=== PATIENT | male | born 1990 | race African-American/Black ===

== ENCOUNTER 2016-12-09 13:02 | Emergency (ER) | payer OTHER ==
[2016-12-09 14:51] LABS: ANION GAP 7 MEQ/L (8-16); BLOOD UREA NITROGEN 15 MG/DL (7-18); CALCIUM LEVEL 9.3 MG/DL (8.5-10.1); CARBON DIOXIDE LEVEL 31 MEQ/L (21-32); CHLORIDE LEVEL 104 MEQ/L (98-107); CREATININE FOR GFR 1.26 MG/DL (0.70-1.30); GLOMERULAR FILTRATION RATE > 60.0 (>60); GLUCOSE, FASTING 84 MG/DL (70-105); POTASSIUM SERUM 4.1 MEQ/L (3.5-5.1); SODIUM LEVEL 142 MEQ/L (136-145)
--- NOTE | 2016-12-09 15:26 | REP ---
Lumbosacral spine: Five views of the lumbosacral spine are performed. There is no compression fracture. There is normal alignment. Disc spaces are well preserved. Posterior elements appear intact. IMPRESSION: Negative lumbosacral spine series. Signed by Aaron Whiting MD 12/09/2016 04:46 P
--- NOTE | 2016-12-09 15:40 | EDDOCDS ---
Physician Documentation [facility] Name: Karel Duran Age: 26 yrs Sex: Male : 1990 Arrival Date: 12/09/2016 Time: 13:02 Bed 5 Private MD: [facility] [place] Disposition: 12/09/16 14:59 Discharged to Home/Self Care. Impression: Sciatica, right side. - Condition is Stable. - Discharge Instructions: Sciatica, [id number]. - Prescriptions for Cyclobenzaprine 5 mg Oral Tablet - take 1 tablet by ORAL route 3 times per day As needed; 15 tablet. - Medication Reconciliation, Local Pharmacy Hours form. - Follow up: [facility]; When: Call to arrange an appointment; Reason: Recheck today's complaints, Continuance of care. - Problem is new. - Symptoms have improved. - Notes: You were evaluated in the emergency department for back pain. Your work-up has been negative. A prescription for a muscle relaxant has been provided at time of discharge. Please follow-up with [facility] at your soonest convenience to discuss today's complaints. Historical: - Allergies: no known allergies; - Home Meds: 1. none - PMHx: none; - PSHx: Hernia repair- Right inguinal; - Social history: Smoking status: Patient states was never smoker of tobacco. No barriers to communication noted, The patient speaks fluent Bengali. - : The pt / caregiver states he / she is not on anticoagulants. Home medication list is obtained from the patient. - Exposure Risk Screening:: None identified. Vital Signs: 12/09 13:04 BP 139 / 79; Pulse 75; Resp 16; Temp 96.9(O); Pulse Ox 100% on R/A; Weight 70.31 kg / elp 155.01 lbs (R); Height 5 ft. 9 in. (175.26 cm) (R); Pain 0/10; 13:04 Body Mass Index 22.89 (70.31 kg, 175.26 cm) elp MDM: 14:16 Spine. Lumbosacral, Complete Ordered. EDMS 14:16 BMP Ordered. EDMS 15:03 BMP Reviewed. jo4 Signatures: Dispatcher [employer] EDMS Renzo Perez RN RN jmk Smith, Mallory, RN RN ms18 Fernanda Espinosa DO DO jo4 FLAKOD
--- NOTE | 2016-12-09 15:40 | EDDOCDS ---
Nurse's Notes [facility] Name: Karel Duran Age: 26 yrs Sex: Male : 1990 Arrival Date: 12/09/2016 Time: 13:02 Bed 5 Private MD: NVGeno BROWN Diagnosis: Sciatica, right side Presentation: 12/09 13:12 Presenting complaint: Patient states: that on 11/26/2016 he injured his mid/lower back. ms18 Pt states that since then he has had testicle swelling and tingling in his R upper leg. Pt here for MRI of back. Acute neurological deficits are not present. Mechanism of Injury: fall. Adult Sepsis Screening: The patient does not have new or worsening altered mentation. Patient's respiratory rate is less than 22. Systolic blood pressure is greater than 100. Patient has a qSOFA score of 0- Negative Sepsis Screen. Suicide/Homicide risk assessment- the patient denies having any suicidal and/or homicidal ideations and does not present with any other emotional, behavioral or mental health complaints. 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 Transition of care: patient was not received from another setting of care. 13:12 Acuity: SHAUNNA Level 3 ms18 13:12 Method Of Arrival: Walkin/Carried/Asstd ms18 Triage Assessment: 13:17 General: Appears in no apparent distress, comfortable, Behavior is appropriate for age, ms18 cooperative, pleasant. Pain: Denies pain. HIV screening NA for this visit Offered previously. Neurological: Level of Consciousness is awake, alert, obeys commands, Oriented to person, place, time, Moves all extremities. Gait is steady, Speech is normal. Respiratory: No deficits noted. Derm: Skin is pink, warm & dry. normal. Musculoskeletal: Reports tingling in R thigh when he picks up something heavy. Historical: - Allergies: no known allergies; - Home Meds: 1. none - PMHx: none; - PSHx: Hernia repair- Right inguinal; - Social history: Smoking status: Patient states was never smoker of tobacco. No barriers to communication noted, The patient speaks fluent Kiswahili. - : The pt / caregiver states he / she is not on anticoagulants. Home medication list is obtained from the patient. - Exposure Risk Screening:: None identified. Screenin:44 Screening information is obtained from the patient. Fall risk: No risks identified. jmk Assistance ADL's: requires no assistance with activities of daily living. Abuse/DV Screen: The patient / caregiver reports he/she is: not in a situation that causes fear, pain or injury. Nutritional screening: No deficits noted. Advance Directives: Currently, there is no health care proxy. There is no active DNR order. There is no living will. There is no Power of Steel Rule Inspector. Advance directive information has not previously been placed in an [facility] medical record. Further advance directive information is declined. home support is adequate. Assessment: 13:36 General: Appears in no apparent distress, Behavior is appropriate for age, cooperative. rs3 Pain: Location: lumbar area. Neurological: Level of Consciousness is awake, alert. Musculoskeletal: Circulation, motion, and sensation intact Capillary refill < 3 seconds Range of motion intact in all extremities. Signs and Symptoms of Compartment Syndrome: no signs of compartment syndrome. 13:41 General: Appears skin warm and dry color satisfactory. BEJARANO readily to all extremities. jmk without bladder or bowel incontinence presently. denies pain. Neurological: No deficits noted. Vital Signs: 13:04 BP 139 / 79; Pulse 75; Resp 16; Temp 96.9(O); Pulse Ox 100% on R/A; Weight 70.31 kg elp (R); Height 5 ft. 9 in. (175.26 cm) (R); Pain 0/10; 13:04 Body Mass Index 22.89 (70.31 kg, 175.26 cm) [facility] Vitals: 13:04 Log In Time: December 09, 2016 at 13:02. [facility] ED Course: 13:04 Patient visited by Alecia Zavala PCA. elp 13:04 [facility] [place] is Private Physician. elp 13:04 Patient moved to Waiting elp 13:05 Patient visited by Alecia Zavala PCA. elp 13:05 Patient moved to Pre RCE elp 13:16 Triage Initiated ms18 13:19 Patient moved to 5 ms18 13:20 [facility] jo4 13:20 Cristiano Snyder MD is Attending Physician. jo4 13:44 Patient visited by Renzo Perez RN. norman 13:44 The patient / caregiver is instructed regarding the plan of care and ED course. janicek 13:50 Patient visited by Fernanda Espinosa DO. jo4 13:50 Patient visited by Fernanda Espinosa DO. jo4 14:26 Patient visited by Deanne Padilla PCA. rs6 14:26 BMP Sent. rs6 14:26 Labs drawn. (by ED staff). Sent per order to lab. rs6 14:59 [facility] jo4 15:34 Spine. Lumbosacral, Complete Returned. EDMS Order Results: Lab Order: BMP; SPEC'M 12/09/16 14:26 Test: GLUCOSE, FASTING; Value: 84; Range: 70-105; Units: MG/DL; Status: F Test: BLOOD UREA NITROGEN; Value: 15; Range: 7-18; Units: MG/DL; Status: F Test: CREATININE FOR GFR; Value: 1.26; Range: 0.70-1.30; Units: MG/DL; Status: F Test: GLOMERULAR FILTRATION RATE; Value: > 60.0; Range: >60; Status: F Test: SODIUM LEVEL; Value: 142; Range: 136-145; Units: MEQ/L; Status: F Test: POTASSIUM SERUM; Value: 4.1; Range: 3.5-5.1; Units: MEQ/L; Status: F Test: CHLORIDE LEVEL; Value: 104; Range: 98-107; Units: MEQ/L; Status: F Test: CARBON DIOXIDE LEVEL; Value: 31; Range: 21-32; Units: MEQ/L; Status: F Test: ANION GAP; Value: 7; Range: 8-16; Abnormal: Below low normal; Units: MEQ/L; Status: F Test: CALCIUM LEVEL; Value: 9.3; Range: 8.5-10.1; Units: MG/DL; Status: F Test Note: ; Units are mL/min/1.73 m2 Chronic Kidney Disease Staging per NKF: Stage I & II GFR >=60 Normal to Mildly Decreased Stage III GFR 30-59 Moderately Decreased Stage IV GFR 15-29 Severely Decreased Stage V GFR <15 Very Little GFR Left ESRD GFR <15 on PIPELINE SYSTEMS OPERATOR Radiology Order: Spine. Lumbosacral, Complete Test: Spine. Lumbosacral, Complete REASON FOR EXAMINATION: Back pain, right leg tingling; Lumbosacral spine:; ; Five views of the lumbosacral spine are performed.; ; There is no compression fracture. There is normal alignment. Disc spaces are well; preserved. Posterior elements appear intact.; ; IMPRESSION:; Negative lumbosacral spine series.; ; ; ; Unreviewed; Outcome: 14:59 Discharge ordered by Provider. jo4 15:38 Discharge Assessment: Patient awake, alert and oriented x 3. No cognitive and/or jmk functional deficits noted. Patient verbalized understanding of disposition instructions. patient administered narcotics - no. The following High Risk Discharge criteria are identified: None. Discharged to home ambulatory. Condition: good. Discharge instructions given to patient, Instructed on discharge instructions, follow up and referral plans. medication usage, Demonstrated understanding of instructions, medications, Pt was receptive of discharge instructions/ teaching. No special radiology studies were completed. Property :Personal belongings accompany Pt. 15:39 Patient left the ED. norman Signatures: Dispatcher [employer] EDMS Renzo Perez,RN Nicole Herr RN RN rs3 Alecia Zavala, MAIL PROCESSING EQUIPMENT MECHANIC MAIL PROCESSING EQUIPMENT MECHANIC Josefina Barcenas RN RN ms18 Deanne aPdilla, MAIL PROCESSING EQUIPMENT MECHANIC MAIL PROCESSING EQUIPMENT MECHANIC rs6 Fernanda Espinosa DO DO jo4 MTDD
--- NOTE | 2016-12-11 16:39 | EDDOCDS ---
Physician Documentation [facility] Name: Karel Duran Age: 26 yrs Sex: Male : 1990 Arrival Date: 12/09/2016 Time: 13:02 Bed 5 Private MD: [facility] [place] Disposition: 12/09/16 14:59 Discharged to Home/Self Care. Impression: Sciatica, right side. - Condition is Stable. - Discharge Instructions: Sciatica, [id number]. - Prescriptions for Cyclobenzaprine 5 mg Oral Tablet - take 1 tablet by ORAL route 3 times per day As needed; 15 tablet. - Medication Reconciliation, Local Pharmacy Hours form. - Follow up: [facility]; When: Call to arrange an appointment; Reason: Recheck today's complaints, Continuance of care. - Problem is new. - Symptoms have improved. - Notes: You were evaluated in the emergency department for back pain. Your work-up has been negative. A prescription for a muscle relaxant has been provided at time of discharge. Please follow-up with [place] [facility] at your soonest convenience to discuss today's complaints. Historical: - Allergies: no known allergies; - Home Meds: 1. none - PMHx: none; - PSHx: Hernia repair- Right inguinal; - Social history: Smoking status: Patient states was never smoker of tobacco. No barriers to communication noted, The patient speaks fluent Danish. - : The pt / caregiver states he / she is not on anticoagulants. Home medication list is obtained from the patient. - Exposure Risk Screening:: None identified. Vital Signs: 12/09 13:04 BP 139 / 79; Pulse 75; Resp 16; Temp 96.9(O); Pulse Ox 100% on R/A; Weight 70.31 kg / elp 155.01 lbs (R); Height 5 ft. 9 in. (175.26 cm) (R); Pain 0/10; 13:04 Body Mass Index 22.89 (70.31 kg, 175.26 cm) elp MDM: 14:16 Spine. Lumbosacral, Complete Ordered. EDMS 14:16 BMP Ordered. EDMS 15:03 BMP Reviewed. jo4 17:45 T-Sheet-- Draft Copy was scanned into [employer] and attached to record. klr Signatures: Dispatcher [employer] Renzo Gibson,RN RN Josefina Florez RN RN ms18 Fernanda Espinosa DO DO jo4 Redder, Kathie klr The chart was reviewed and I authenticate all verbal orders and agree with the evaluation and treatment provided.Attachments: 17:45 T-Sheet-- Draft Copy klr Chart Complete MTDD
--- NOTE | 2016-12-11 16:39 | EDDOCDS ---
Physician Documentation [facility] Name: Karel Duran Age: 26 yrs Sex: Male : 1990 Arrival Date: 12/09/2016 Time: 13:02 Bed 5 Private MD: [facility] [place] Disposition: 12/09/16 14:59 Discharged to Home/Self Care. Impression: Sciatica, right side. - Condition is Stable. - Discharge Instructions: Sciatica, [id number]. - Prescriptions for Cyclobenzaprine 5 mg Oral Tablet - take 1 tablet by ORAL route 3 times per day As needed; 15 tablet. - Medication Reconciliation, Local Pharmacy Hours form. - Follow up: [facility]; When: Call to arrange an appointment; Reason: Recheck today's complaints, Continuance of care. - Problem is new. - Symptoms have improved. - Notes: You were evaluated in the emergency department for back pain. Your work-up has been negative. A prescription for a muscle relaxant has been provided at time of discharge. Please follow-up with [place] [facility] at your soonest convenience to discuss today's complaints. Historical: - Allergies: no known allergies; - Home Meds: 1. none - PMHx: none; - PSHx: Hernia repair- Right inguinal; - Social history: Smoking status: Patient states was never smoker of tobacco. No barriers to communication noted, The patient speaks fluent Ukrainian. - : The pt / caregiver states he / she is not on anticoagulants. Home medication list is obtained from the patient. - Exposure Risk Screening:: None identified. Vital Signs: 12/09 13:04 BP 139 / 79; Pulse 75; Resp 16; Temp 96.9(O); Pulse Ox 100% on R/A; Weight 70.31 kg / elp 155.01 lbs (R); Height 5 ft. 9 in. (175.26 cm) (R); Pain 0/10; 13:04 Body Mass Index 22.89 (70.31 kg, 175.26 cm) elp MDM: 14:16 Spine. Lumbosacral, Complete Ordered. EDMS 14:16 BMP Ordered. EDMS 15:03 BMP Reviewed. jo4 17:45 T-Sheet-- Draft Copy was scanned into [employer] and attached to record. klr Signatures: Dispatcher [employer] Renzo Gibson,RN RN Josefina Florez RN RN ms18 Fernanda Espinosa DO DO jo4 Redder, Kathie klr The chart was reviewed and I authenticate all verbal orders and agree with the evaluation and treatment provided.Attachments: 17:45 T-Sheet-- Draft Copy klr Chart Complete MTDD
--- NOTE | 2016-12-11 16:39 | EDDOCDS ---
Nurse's Notes [facility] Name: Karel Duran Age: 26 yrs Sex: Male : 1990 Arrival Date: 12/09/2016 Time: 13:02 Bed 5 Private MD: OHGeno BROWN Diagnosis: Sciatica, right side Presentation: 12/09 13:12 Presenting complaint: Patient states: that on 11/26/2016 he injured his mid/lower back. ms18 Pt states that since then he has had testicle swelling and tingling in his R upper leg. Pt here for MRI of back. Acute neurological deficits are not present. Mechanism of Injury: fall. Adult Sepsis Screening: The patient does not have new or worsening altered mentation. Patient's respiratory rate is less than 22. Systolic blood pressure is greater than 100. Patient has a qSOFA score of 0- Negative Sepsis Screen. Suicide/Homicide risk assessment- the patient denies having any suicidal and/or homicidal ideations and does not present with any other emotional, behavioral or mental health complaints. Status: The patient is an active duty service desk team lead. Transition of care: patient was not received from another setting of care. 13:12 Acuity: SHAUNNA Level 3 ms18 13:12 Method Of Arrival: Walkin/Carried/Asstd ms18 Triage Assessment: 13:17 General: Appears in no apparent distress, comfortable, Behavior is appropriate for age, ms18 cooperative, pleasant. Pain: Denies pain. HIV screening NA for this visit Offered previously. Neurological: Level of Consciousness is awake, alert, obeys commands, Oriented to person, place, time, Moves all extremities. Gait is steady, Speech is normal. Respiratory: No deficits noted. Derm: Skin is pink, warm & dry. normal. Musculoskeletal: Reports tingling in R thigh when he picks up something heavy. Historical: - Allergies: no known allergies; - Home Meds: 1. none - PMHx: none; - PSHx: Hernia repair- Right inguinal; - Social history: Smoking status: Patient states was never smoker of tobacco. No barriers to communication noted, The patient speaks fluent Kazakh. - : The pt / caregiver states he / she is not on anticoagulants. Home medication list is obtained from the patient. - Exposure Risk Screening:: None identified. Screenin:44 Screening information is obtained from the patient. Fall risk: No risks identified. jmk Assistance ADL's: requires no assistance with activities of daily living. Abuse/DV Screen: The patient / caregiver reports he/she is: not in a situation that causes fear, pain or injury. Nutritional screening: No deficits noted. Advance Directives: Currently, there is no health care proxy. There is no active DNR order. There is no living will. There is no Power of Credit Analyst. Advance directive information has not previously been placed in an [facility] medical record. Further advance directive information is declined. home support is adequate. Assessment: 13:36 General: Appears in no apparent distress, Behavior is appropriate for age, cooperative. rs3 Pain: Location: lumbar area. Neurological: Level of Consciousness is awake, alert. Musculoskeletal: Circulation, motion, and sensation intact Capillary refill < 3 seconds Range of motion intact in all extremities. Signs and Symptoms of Compartment Syndrome: no signs of compartment syndrome. 13:41 General: Appears skin warm and dry color satisfactory. BEJARANO readily to all extremities. jmk without bladder or bowel incontinence presently. denies pain. Neurological: No deficits noted. Vital Signs: 13:04 BP 139 / 79; Pulse 75; Resp 16; Temp 96.9(O); Pulse Ox 100% on R/A; Weight 70.31 kg elp (R); Height 5 ft. 9 in. (175.26 cm) (R); Pain 0/10; 13:04 Body Mass Index 22.89 (70.31 kg, 175.26 cm) [facility] Vitals: 13:04 Log In Time: December 09, 2016 at 13:02. [facility] ED Course: 13:04 Patient visited by Alecia Zavala PCA. elp 13:04 [facility] [place] is Private Physician. elp 13:04 Patient moved to Waiting elp 13:05 Patient visited by Alecia Zavala PCA. elp 13:05 Patient moved to Pre RCE elp 13:16 Triage Initiated ms18 13:19 Patient moved to 5 ms18 13:20 Fern[facility]spinosa DO [facility] jo4 13:20 Cristiano Snyder MD is Attending Physician. jo4 13:44 Patient visited by Renzo Perez RN. norman 13:44 The patient / caregiver is instructed regarding the plan of care and ED course. janicek 13:50 Patient visited by Fernanda Espinosa DO. jo4 13:50 Patient visited by Fernanda Espinosa DO. jo4 14:26 Patient visited by Deanne Padilla PCA. rs6 14:26 BMP Sent. rs6 14:26 Labs drawn. (by ED staff). Sent per order to lab. rs6 14:59 [facility] jo4 15:34 Spine. Lumbosacral, Complete Returned. EDMS 17:45 T-Sheet-- Draft Copy was scanned into [employer] and attached to record. klr Order Results: Lab Order: BMP; SPEC'M 12/09/16 14:26 Test: GLUCOSE, FASTING; Value: 84; Range: 70-105; Units: MG/DL; Status: F Test: BLOOD UREA NITROGEN; Value: 15; Range: 7-18; Units: MG/DL; Status: F Test: CREATININE FOR GFR; Value: 1.26; Range: 0.70-1.30; Units: MG/DL; Status: F Test: GLOMERULAR FILTRATION RATE; Value: > 60.0; Range: >60; Status: F Test: SODIUM LEVEL; Value: 142; Range: 136-145; Units: MEQ/L; Status: F Test: POTASSIUM SERUM; Value: 4.1; Range: 3.5-5.1; Units: MEQ/L; Status: F Test: CHLORIDE LEVEL; Value: 104; Range: 98-107; Units: MEQ/L; Status: F Test: CARBON DIOXIDE LEVEL; Value: 31; Range: 21-32; Units: MEQ/L; Status: F Test: ANION GAP; Value: 7; Range: 8-16; Abnormal: Below low normal; Units: MEQ/L; Status: F Test: CALCIUM LEVEL; Value: 9.3; Range: 8.5-10.1; Units: MG/DL; Status: F Test Note: ; Units are mL/min/1.73 m2 Chronic Kidney Disease Staging per NKF: Stage I & II GFR >=60 Normal to Mildly Decreased Stage III GFR 30-59 Moderately Decreased Stage IV GFR 15-29 Severely Decreased Stage V GFR <15 Very Little GFR Left ESRD GFR <15 on PLANT CARE WORKER Radiology Order: Spine. Lumbosacral, Complete Test: Spine. Lumbosacral, Complete REASON FOR EXAMINATION: Back pain, right leg tingling; Lumbosacral spine:; ; Five views of the lumbosacral spine are performed.; ; There is no compression fracture. There is normal alignment. Disc spaces are well; preserved. Posterior elements appear intact.; ; IMPRESSION:; ; Negative lumbosacral spine series.; ; ; Signed by; Aaron Whiting MD 12/09/2016 04:46 P; Outcome: 14:59 Discharge ordered by Provider. jo4 15:38 Discharge Assessment: Patient awake, alert and oriented x 3. No cognitive and/or jmk functional deficits noted. Patient verbalized understanding of disposition instructions. patient administered narcotics - no. The following High Risk Discharge criteria are identified: None. Discharged to home ambulatory. Condition: good. Discharge instructions given to patient, Instructed on discharge instructions, follow up and referral plans. medication usage, Demonstrated understanding of instructions, medications, Pt was receptive of discharge instructions/ teaching. No special radiology studies were completed. Property :Personal belongings accompany Pt. 15:39 Patient left the ED. norman Signatures: Dispatcher [employer] EDMS Renzo Perez,RN RN Nicole McknightRN RN rs3 Alecia Zavala, NON EMERGENCY SERVICES AMBULANCE DRIVER NON EMERGENCY SERVICES AMBULANCE DRIVER Josefina Barcenas RN RN ms18 Deanne Padilla, NON EMERGENCY SERVICES AMBULANCE DRIVER NON EMERGENCY SERVICES AMBULANCE DRIVER rs6 Fernanda Espinosa DO DO jo4 Redder, Kathie klr Chart Complete MTDD
== END 2016-12-09 15:39 | disposition home or self-care (01) ==
LOC: M ED 13:02
DX: M54.31 Sciatica, right side (principal); M41.9 Scoliosis, unspecified

== ENCOUNTER 2017-06-26 13:43 | Emergency (ER) | payer OTHER ==
[~2017-06-26] VITALS: Ht 175.3 cm; Wt 69.5 kg
[2017-06-26 13:43] VITALS: BP 139/65
[2017-06-26] MEDS ORDERED: NS 1,000 ML IV SCH (16:03)
[2017-06-26 16:36] LABS: BASO # 0.1 K/mm3 (0.0-0.2); BASO % 0.7 % (0.0-1.0); EOS # 0.2 K/mm3 (0.0-0.50); EOS % 1.8 % (0.0-3.0); LARGE UNSTAINED CELL # 0.1 K/mm3 (0.0-0.4); LARGE UNSTAINED CELL % 0.8 % (0.0-4.0); LYMPH # 1.5 K/mm3 (1.5-6.5); MEAN CORPUSCULAR HEMOGLOBIN 27.7 pg (27.0-33.0); MEAN CORPUSCULAR HGB CONC 32.2 g/dl (32.0-36.5); MONO # 0.4 K/mm3 (0.0-0.8); MONO % 3.6 % (0.0-5.0); NEUTROPHILS # 10.1 K/mm3 (1.8-7.7); NEUTROPHILS % 82.1 % (36.0-66.0); PLATELET COUNT, AUTOMATED 214 k/mm3 (150-450); RED CELL DISTRIBUTION WIDTH 13.1 % (11.5-14.5); WHITE BLOOD COUNT 12.3 K/mm3 (4.0-10.0)
[2017-06-26 17:15] LABS: ANION GAP 9 MEQ/L (8-16); BLOOD UREA NITROGEN 23 MG/DL (7-18); CALCIUM LEVEL 9.3 MG/DL (8.5-10.1); CARBON DIOXIDE LEVEL 25 MEQ/L (21-32); CHLORIDE LEVEL 108 MEQ/L (98-107); CREATININE FOR GFR 1.46 MG/DL (0.70-1.30); GLOMERULAR FILTRATION RATE > 60.0 (>60); GLUCOSE, FASTING 75 MG/DL (70-105); POTASSIUM SERUM 4.2 MEQ/L (3.5-5.1); SODIUM LEVEL 142 MEQ/L (136-145)
[2017-06-26] MEDS ORDERED: ISOVUE-370 76% 100ML VIAL (Q9967) As Ordered ONE (17:21)
--- NOTE | 2017-06-26 20:52 | REP ---
CT ABDOMEN PELVIS WITH IV CONTRAST: 06/26/2017. Clinical history: Right lower quadrant pain. Prior inguinal hernia repair. Technique: Patient received a bolus of 100 mL Isovue 370 scanning through the abdomen pelvis with both coronal and sagittal reconstructions. Findings:CT abdomen: Lung bases are clear. Heart not enlarged. No hiatal hernia. Liver, spleen, contracted gallbladder and adrenal glands grossly intact. Kidneys show function without obstruction. The aorta is without aneurysm and no periaortic or other retroperitoneal pathologic sized adenopathy. Stomach shows no hiatal hernia, is filled with retained fluid. All small bowel loops are fluid filled. A few air-fluid levels in nondilated loops. Lung window review of all CT slice levels shows no perforation or abscess. Kidneys show function without obstruction, stone or mass. Ureters are not dilated. Small bowel loops are not dilated. The colon shows stool and gas scattered throughout. Bone windows show lumbar and lower thoracic spine without acute compression deformity. The visualized ribs were intact. No spondylolysis. No central canal stenosis. CT pelvis: The SI joints, sacrum, lumbosacral junction, pelvis and hips are without any acute bony finding. Bladder shows no wall thickening, stone or mass. The bowel loops in the deep pelvis are fluid filled and small bowel and stool and gas in the colon without definite colitis or diverticulitis or free air or adenopathy in the right inguinal region shows no bowel herniation. There is no ventral or left inguinal hernia. Some postsurgical changes seen at right inguinal region. No distension of the inguinal canals by fluid. No appendix visible. Absence of body fat and fluid-filled small bowel loops within this evaluation. Impression: 1. There is no CT evidence of bowel herniation in either inguinal canal with some postoperative changes on the right. No distension of the inguinal canal by fluid. 2. No ventral hernia, inguinal adenopathy or mass. 3. No other significant or acute finding. The appendix is not visible. Signed by Maxime Patel MD 06/27/2017 10:59 [facility]
== END 2017-06-26 19:09 | disposition home or self-care (01) ==
LOC: M ED 13:43
DX: S39.81XA Other specified injuries of abdomen, initial encounter (principal); X58.XXXA Exposure to other specified factors, initial encounter; Y92.9 Unspecified place or not applicable; Y93.9 Activity, unspecified; Y99.9 Unspecified external cause status
CPT/HCPCS: 74177; 80048; 83605; 85025; 99283; Q9967

== ENCOUNTER 2017-08-03 14:30 | Emergency (ER) | payer OTHER ==
[~2017-08-03] VITALS: Ht 175.3 cm; Wt 70.0 kg
[2017-08-03 14:31] VITALS: BP 142/96
[2017-08-03] MEDS ORDERED: TERB1CRE12 (14:47)
[2017-08-03] MEDS ORDERED: CEPH250T PO (17:09)
[2017-08-03] MEDS ORDERED: LOTRCRE TOP (17:09)
== END 2017-08-03 17:18 | disposition home or self-care (01) ==
LOC: M ED 14:30
DX: B35.6 Tinea cruris (principal)

== ENCOUNTER 2018-01-06 02:26 | Emergency (ER) | payer OTHER | END 2018-01-06 04:49 | disposition home or self-care (01) | LOC: M ED 02:26 | DX: B35.4 Tinea corporis (principal) | CPT/HCPCS: 99283 ==